=== PATIENT | male | born 1960 | race Caucasian/White ===

== ENCOUNTER 2018-03-28 12:17 | Outpatient (CLI) | payer MEDICAID ==
[~2018-03-28] VITALS: Ht 172.7 cm; Wt 81.6 kg
[2018-03-28] MEDS ORDERED: CT SWABBABLE VALVE TRANS SET 1 EA INFUS.SET MC ONE (14:01)
[2018-03-28] MEDS ORDERED: IOHEXOL-350 100 ML VIAL IV ONE (14:01)
[2018-03-28] MEDS ORDERED: METOPROLOL TARTRATE INJ 5 MG/5 ML AMPUL ONE ×3 (14:01→14:13)
[2018-03-28] MEDS ORDERED: IV NS 0.9% 250 ML IV ONE (14:02)
[2018-03-28] MEDS ORDERED: IV NS 0.9% 500 ML IV PRN (15:00)
[2018-03-28] MEDS ORDERED: NITROGLYCERIN 4.9 GM SPRAY SL ONE (15:00)
[2018-03-28] MEDS ORDERED: METOPROLOL TARTRATE INJ 5 MG/5 ML AMPUL IVP ONE (15:00)
== END 2018-03-28 23:59 | disposition home or self-care (01) ==
LOC: CT 12:17
PROVIDERS: ATTEND Registered Nurse
DX: I25.810 Atherosclerosis of coronary artery bypass graft(s) without angina pectoris (principal); J43.2 Centrilobular emphysema
CPT/HCPCS: 75574; J3490 ×3; J7050; Q9967